=== PATIENT | male | born 1985 | race African-American/Black ===

== ENCOUNTER 2018-10-05 13:17 | Emergency (ER) | payer MEDICAID ==
[~2018-10-05] VITALS: Ht 170.2 cm; Wt 132.0 kg
[2018-10-05] MEDS ORDERED: ALBU05 NEB (13:54)
[2018-10-05] MEDS ORDERED: FLUT1DIS2 IH (13:54)
[2018-10-05] MEDS ORDERED: MONT4GRA PO (13:54)
[2018-10-05 14:15] VITALS: BP 149/90
== END 2018-10-05 15:50 | disposition home or self-care (01) ==
LOC: ER 15:02
DX: J06.9 Acute upper respiratory infection, unspecified (principal); F12.10 Cannabis abuse, uncomplicated; J45.909 Unspecified asthma, uncomplicated; F17.200 Nicotine dependence, unspecified, uncomplicated
CPT/HCPCS: 99282

== ENCOUNTER 2018-11-05 14:14 | Emergency (ER) | payer MEDICAID ==
[~2018-11-05 14:14] MED LIST: ALBU05 NEB; FLUT1DIS2 IH; MONT4GRA PO
== END 2018-11-05 15:21 | disposition left against medical advice (07) ==
LOC: ER 14:14
DX: Z53.21 Procedure and treatment not carried out due to patient leaving prior to being seen by health care provider (principal)